=== PATIENT | male | born 1990 | race African-American/Black ===

== ENCOUNTER 2024-07-27 10:14 | Emergency (ER) | payer OTHER ==
[~2024-07-27] VITALS: Ht 185.4 cm; Wt 84.4 kg
[2024-07-27 12:04] LABS: BASO % 0.6 % (0.0-1.0); EOS # 0.1 10^3/uL (0.0-0.5); EOS % 2.2 % (0.0-3.0); HEMATOCRIT 43.9 % (42.0-52.0); HEMOGLOBIN 15.3 g/dl (13.5-17.5); LYMPH # 1.9 10^3/uL (1.5-5.0); LYMPH % 40.6 % (24.0-44.0); MEAN CORPUSCULAR HEMOGLOBIN 29.8 pg (27.0-33.0); MEAN CORPUSCULAR HGB CONC 34.9 g/dl (32.0-36.5); MEAN CORPUSCULAR VOLUME 85.4 fl (80.0-96.0); MONO # 0.4 10^3/uL (0.0-0.8); MONO % 9.1 % (2.0-8.0); NEUTROPHILS # 2.2 10^3/uL (1.5-8.5); NEUTROPHILS % 47.3 % (36.0-66.0); PLATELET COUNT, AUTOMATED 232 10^3/uL (150-450); RED BLOOD COUNT 5.14 10^6/uL (4.30-6.10); WHITE BLOOD COUNT 4.6 10^3/uL (4.0-10.0)
[2024-07-27 12:37] LABS: LIPASE 34 U/L (12-53)
[2024-07-27 12:39] LABS: ALKALINE PHOSPHATASE 70 U/L (40-129); ALT/SGPT 25 U/L (7.0-40); AST/SGOT 21 U/L (<34); BILIRUBIN,DIRECT 0.2 MG/DL (<0.4); BILIRUBIN,TOTAL 0.6 MG/DL (0.3-1.2); BLOOD UREA NITROGEN 12 MG/DL (9-23); CALCIUM LEVEL 9.9 MG/DL (8.5-10.1); CARBON DIOXIDE LEVEL 26 MMOL/L (20-31); CHLORIDE LEVEL 104 MMOL/L (98-107); CREATININE FOR GFR 0.88 MG/DL (0.70-1.30); GLOMERULAR FILTRATION RATE > 60.0 (>60); GLUCOSE, FASTING 82 MG/DL (60-100); POTASSIUM SERUM 4.4 MMOL/L (3.5-5.1); SODIUM LEVEL 139 MMOL/L (136-145); TOTAL PROTEIN 7.9 G/DL (5.7-8.2)
[2024-07-27] MEDS ORDERED: PROC1AER16 PR (12:52)
[2024-07-27 13:02] VITALS: BP 130/85; TEMP 97.8; O2SAT 98
== END 2024-07-27 13:05 | disposition home or self-care (01) ==
LOC: M ED 10:14
DX: K92.2 Gastrointestinal hemorrhage, unspecified (principal); K59.00 Constipation, unspecified; Z79.899 Other long term (current) drug therapy

== ENCOUNTER 2025-07-21 07:22 | Emergency (ER) | payer OTHER ==
[~2025-07-21] VITALS: Ht 182.9 cm; Wt 87.5 kg
[~2025-07-21 07:22] MED LIST: PROC1AER16 PR
[2025-07-21] MEDS: METHOCARBAMOL 1,000 MG/10 ML VIAL IV ONE (09:53)
[2025-07-21] MEDS: KETOROLAC 30 MG/ML 1 ML VIAL IV ONE (09:54)
[2025-07-21] MEDS ORDERED: METH-1164 PO (11:01)
[2025-07-21 11:14] VITALS: BP 117/86; TEMP 97.6; O2SAT 100
== END 2025-07-21 11:11 | disposition home or self-care (01) ==
LOC: M ED 07:22
DX: M54.31 Sciatica, right side (principal); M54.50 Low back pain, unspecified; Z79.899 Other long term (current) drug therapy
CPT/HCPCS: 96374; 96375; 99284; J1885; J2800